=== PATIENT | female | born 1955 | race Caucasian/White ===

== ENCOUNTER 2017-08-07 16:13 | Emergency (ER) | payer OTHER ==
[~2017-08-07] VITALS: Ht 154.9 cm; Wt 72.6 kg
[2017-08-07] MEDS ORDERED: OSEL75CA PO (19:16)
[2017-08-07] MEDS ORDERED: TUSSI PRES-B L120 M1 PO (19:16)
== END 2017-08-07 19:36 | disposition home or self-care (01) ==
LOC: ER 16:13 → EDBD 16:16 → ER 19:36
DX: B34.9 Viral infection, unspecified (principal)

== ENCOUNTER 2018-12-20 03:41 | Emergency (ER) | payer OTHER ==
[~2018-12-20] VITALS: Ht 154.9 cm; Wt 76.2 kg
[~2018-12-20 03:41] MED LIST: OSEL75CA PO; TUSSI PRES-B L120 M1 PO
== END 2018-12-20 10:44 | disposition home or self-care (01) ==
LOC: ER 03:41
DX: H81.13 Benign paroxysmal vertigo, bilateral (principal)

== ENCOUNTER 2024-08-21 10:42 | Emergency (ER) | payer OTHER ==
[~2024-08-21] VITALS: Ht 154.9 cm; Wt 73.5 kg
[2024-08-21] MEDS ORDERED: TOPROL XL25 M1 PO (11:49)
[2024-08-21] MEDS ORDERED: METFORMIN HCL500 M3 PO (11:49)
[2024-08-21] MEDS ORDERED: LISINOPRIL20 MG PO (11:49)
[2024-08-21] MEDS ORDERED: 0.9 % SODIUM CHLORIDE 1,000 ML IV STA (11:54)
[2024-08-21] MEDS ORDERED: ONDANSETRON HCL 2 MG/ML VIAL IV STA (11:55)
[2024-08-21] MEDS ORDERED: ONDANSETRON HCL 2 MG/ML VIAL ONE (13:03)
[2024-08-21 13:24] LABS: HEMATOCRIT 44.9 % (36.0-45.00); HEMOGLOBIN 15.4 g/dL (12.0-15.00); MEAN CELL VOLUME 90.3 fL (80.00-100.00); MEAN CORPUSCULAR HEMOGLOBIN 30.9 pg (27.00-32.0); MEAN CORPUSCULAR HGB CONC 34.2 g/dl (32.0-36.0); PLATELET COUNT 246 K/uL (150-450); RED BLOOD COUNT 4.98 M/uL (4.00-6.00)
[2024-08-21 14:38] LABS: URINE APPEARANCE Clear; URINE BILIRRUBIN Negative (NEGATIVE); URINE BLOOD Negative; URINE COLOR Yellow; URINE GLUCOSE Negative (NEGATIVE); URINE KETONE Trace (NEGATIVE); URINE LEUKOCYTE Negative; URINE NITRATE Negative; URINE PROTEIN Trace (NEGATIVE)
[2024-08-21 14:43] LABS: URINE BACTERIA 559.3 uL (0.0-1933); URINE EPITHELIAL CELLS 26.8 uL (0.0-38.8); URINE RBC 19.7 uL (0.0-20.8); URINE WBC 13.7 uL (0.0-23.2)
[2024-08-21 15:11] LABS: CALCIUM 9.3 mg/dL (8.5-10.1); CREATININE SERUM 0.88 mg/dL (0.55-1.02); GFR 63.71
[2024-08-21 16:00] LABS: POTASSIUM 4.02 mEq/L (3.5-5.1)
[2024-08-21] MEDS ORDERED: PEPCID AC20 MG PO (17:27)
[2024-08-21] MEDS ORDERED: ONDANSETRON ODT8 MG PO (17:27)
== END 2024-08-21 17:34 | disposition home or self-care (01) ==
LOC: ER 10:44
PROVIDERS: Emergency Medicine
DX: K52.89 Other specified noninfective gastroenteritis and colitis (principal); Z88.8 Allergy status to other drugs, medicaments and biological substances; E11.9 Type 2 diabetes mellitus without complications; Z79.84 Long term (current) use of oral hypoglycemic drugs; E78.00 Pure hypercholesterolemia, unspecified; I10 Essential (primary) hypertension
CPT/HCPCS: 36415; 96365; 96366; 99282; J2405; J7030